=== PATIENT | female | born 1980 | race Caucasian/White ===

== ENCOUNTER 2019-08-23 05:16 | Day surgery (SDC) | payer MEDICAID ==
[2019-08-22 16:18] LABS: BASOPHILS % (AUTO) 0.7 % (0.0-5.0); EOSINOPHILS % (AUTO) 3.5 % (0.0-8.0); HEMATOCRIT 39.8 % (36-48); LYMPHOCYTES % (AUTO) 23.8 % (21.0-51.0); MEAN CORPUSCULAR HGB CONC 33.9 g/dL (32.0-36.0); MEAN CORPUSCULAR VOLUME 88.4 fL (79-99); MONOCYTES % (AUTO) 7.7 % (3.0-13.0); PLATELET COUNT (AUTO) 383 K/uL (130-400); RED CELL DISTRIBUTION WIDTH 12.6 % (11.0-15.5); WHITE BLOOD COUNT (AUTO) 12.2 K/uL (4.8-10.8)
[2019-08-22 16:39] VITALS: BP 116/69
--- NOTE | 2019-08-22 16:51 | NUR ---
RE: ABNORMAL CBC CALLED DR DURAN'S OFFICE, REPORTED WBC 12.2 TO FLORENCIA. PER FLORENCIA, SHE WILL CALL BACK IF FURTHER ORDERS ARE GIVEN.
--- NOTE | 2019-08-22 17:01 | NUR ---
RE: ABNORMAL WBC 12.2 DR DURAN MADE AWARE OF LABS, PER DR DURAN OK TO PROCEED WITH SCHEDULED PROCEDURE
[~2019-08-23] VITALS: Ht 163.8 cm; Wt 66.2 kg
[~2019-08-23 05:16] MED LIST: CITA20TA17 PO
[2019-08-23] MEDS ORDERED: LACTATED RINGERS 1000ML 1,000 ML IV ONE (05:42)
[2019-08-23 06:00] VITALS: BP 123/72
[2019-08-23] MEDS ORDERED: ROCURONIUM 10MG/1ML SYR 10 MG/ML ML ONE (06:29)
[2019-08-23] MEDS ORDERED: SUCCINYLCHOLINE CHLORIDE 20 MG/ML 10 ML VIAL ONE (06:29)
[2019-08-23] MEDS ORDERED: LIDOCAINE PF 2% 5ML ABBOJECT ONE (06:29)
[2019-08-23] MEDS ORDERED: MIDAZOLAM HCL 1 MG/ML 2ML VIAL ONE (06:30)
[2019-08-23] MEDS ORDERED: FENTANYL CITRATE PF 50 MCG/1 ML 2ML VIAL ONE (06:30)
[2019-08-23] MEDS ORDERED: PROPOFOL 10 MG/ML 20ML VIAL IV ONE (06:30)
[2019-08-23] MEDS ORDERED: OXYTOCIN 10 USP UNITS/ML ONE (06:42)
[2019-08-23] MEDS ORDERED: ONDANSETRON HCL 4 MG/2 ML VIAL ONE (06:45)
[2019-08-23] MEDS ORDERED: LACTATED RINGERS 1000ML 1,000 ML IV SCH (08:00)
[2019-08-23 08:10] VITALS: BP 114/75
[2019-08-23 08:25] VITALS: BP 118/78
[2019-08-23 08:40] VITALS: BP 120/78
--- NOTE | 2019-08-23 08:50 | NUR ---
PATIENT PROVIDED WITH FEMININE PAD, PATIENT HAS SMALL AMOUNT OF VAGINAL BLEEDING NOTED. PATIENT DISCHARGED FROM FACILITY VIA WHEELCHAIR AND ASSISTED INTO PRIVATE VEHICLE DRIVEN BY SPOUSE.
--- NOTE | 2019-08-23 09:08 | NUR ---
PT ARRIVED TO DAY PATIENT BY MARY KAY HAMLIN. PATIENT [id number], RESPIRATIONS UNLABORED, VITAL SIGNS STABLE, DENIES ANY PAIN AT THIS TIME. NO BLEEDING NOTED TO PAD AT THIS TIME.
== END 2019-08-23 08:50 | disposition home or self-care (01) ==
LOC: DAH 05:16
PROVIDERS: ATTEND Obstetrics & Gynecology
DX: O02.1 Missed abortion (principal); N85.4 Malposition of uterus; N84.1 Polyp of cervix uteri; F41.9 Anxiety disorder, unspecified; Z3A.08 8 weeks gestation of pregnancy; Z90.49 Acquired absence of other specified parts of digestive tract; Z98.890 Other specified postprocedural states; Z88.0 Allergy status to penicillin
CPT/HCPCS: 36415; 57500; 59820; 85025; 86850; 86900; 86901; A4215; A4221; A4222; A4223; A4663; A6260; J0330; J2001; J2250; J2405; J2590; J2704; J3010; J7120 ×2

== ENCOUNTER 2020-10-14 14:00 | Emergency (ER) | payer MEDICAID ==
[~2020-10-14] VITALS: Ht 162.6 cm; Wt 68.0 kg
== END 2020-10-14 17:26 | disposition left against medical advice (07) ==
LOC: EDH 14:00
DX: Z04.1 Encounter for examination and observation following transport accident (principal); Z53.21 Procedure and treatment not carried out due to patient leaving prior to being seen by health care provider